=== PATIENT | male | born 1965 | race African-American/Black ===

== ENCOUNTER 2016-06-28 11:57 | Observation (INO) | payer SELFPAY ==
[2016-06-28] MEDS ORDERED: ASPIRIN CHEW 81 MG TABLET PO STA (12:16)
[2016-06-28] MEDS ORDERED: ASPIRIN CHEW 81 MG TABLET ONE (12:39)
[2016-06-28] MEDS ORDERED: SODIUM CHLORIDE FLUSH 0.9% 10 ML SYRINGE IVP PRN (15:32)
[2016-06-28] MEDS ORDERED: ALPRAZolam 0.25 MG TABLET PO SCH (20:14)
[2016-06-28] MEDS ORDERED: DEXTROSE 5% 1,000 ML IV PRN (20:19)
[2016-06-28] MEDS ORDERED: DEXTROSE GEL 37.5 GM TUBE PO PRN (20:19)
[2016-06-28] MEDS ORDERED: GLUCAGON 1 MG/ML VIAL SUBQ PRN (20:19)
[2016-06-28] MEDS ORDERED: DEXTROSE 50% ABBOJECT 25 GM/50 ML SYRINGE IVP PRN (20:19)
[2016-06-28] MEDS: INSULIN ASPART 300 UNIT/3 ML PEN SUBQ SCH (20:57)
[2016-06-28] MEDS: SODIUM CHLORIDE FLUSH 0.9% 10 ML SYRINGE IVP SCH (20:57)
[2016-06-28] MEDS ORDERED: IBUPROFEN 400 MG TABLET PO PRN (21:20)
[2016-06-29] MEDS: SODIUM CHLORIDE FLUSH 0.9% 10 ML SYRINGE IVP SCH (07:45)
[2016-06-29] MEDS ORDERED: metFORMIN 500 MG TABLET PO SCH (08:00)
[2016-06-29] MEDS: INSULIN ASPART 300 UNIT/3 ML PEN SUBQ SCH (08:01)
[2016-06-29] MEDS ORDERED: LISINOPRIL 5 MG TABLET PO SCH (09:00)
[2016-06-29] MEDS ORDERED: FAMOTIDINE 20 MG TABLET PO SCH (09:00)
[2016-06-29] MEDS ORDERED: amLODIPine 5 MG TABLET PO SCH (09:00)
[2016-06-29] MEDS ORDERED: POLYETHYLENE GLYCOL 3350 17 GM PACKET PO SCH (09:00)
== END 2016-06-29 10:48 | disposition home or self-care (01) ==
DX: R07.89 Other chest pain (principal); E11.9 Type 2 diabetes mellitus without complications; I10 Essential (primary) hypertension; F43.21 Adjustment disorder with depressed mood; K21.9 Gastro-esophageal reflux disease without esophagitis; Z79.84 Long term (current) use of oral hypoglycemic drugs; Z87.891 Personal history of nicotine dependence; Z63.5 Disruption of family by separation and divorce; Z88.0 Allergy status to penicillin
CPT/HCPCS: 36415; 71020; 80053; 82550; 83036; 83605; 83690; 83880; 84484; 85025; 93005; 93010; 99284; 99285; A9270; G0378

== ENCOUNTER 2016-08-02 07:10 | Emergency (ER) | payer SELFPAY ==
[2016-08-02] MEDS ORDERED: BENZONATATE 100 MG CAPSULE PO STA (07:33)
[2016-08-02] MEDS ORDERED: ALBUTEROL NEB 2.5 MG/3 ML INH STA (07:33)
[2016-08-02] MEDS ORDERED: BENZONATATE 100 MG CAPSULE PO ONE (07:37)
[2016-08-02] MEDS ORDERED: ALBUTEROL NEB 2.5 MG/3 ML INH ONE (07:44)
== END 2016-08-02 08:42 | disposition home or self-care (01) ==
DX: J11.1 Influenza due to unidentified influenza virus with other respiratory manifestations (principal); E11.9 Type 2 diabetes mellitus without complications; J44.9 Chronic obstructive pulmonary disease, unspecified; I10 Essential (primary) hypertension; Z79.84 Long term (current) use of oral hypoglycemic drugs; F17.200 Nicotine dependence, unspecified, uncomplicated
CPT/HCPCS: 71020; 94640; 99283; A9270; J7613

== ENCOUNTER 2016-08-22 07:46 | Emergency (ER) | payer SELFPAY ==
[2016-08-22] MEDS ORDERED: DEXAMETHASONE 10 MG/ML VIAL PO STA (09:05)
[2016-08-22] MEDS ORDERED: DEXAMETHASONE 10 MG/ML VIAL ONE (09:09)
== END 2016-08-22 09:18 | disposition home or self-care (01) ==
DX: J44.9 Chronic obstructive pulmonary disease, unspecified (principal); R07.89 Other chest pain; H66.003 Acute suppurative otitis media without spontaneous rupture of ear drum, bilateral; F17.200 Nicotine dependence, unspecified, uncomplicated; I10 Essential (primary) hypertension; E11.9 Type 2 diabetes mellitus without complications; Z79.84 Long term (current) use of oral hypoglycemic drugs

== ENCOUNTER 2016-09-19 14:30 | Emergency (ER) | payer SELFPAY ==
[2016-09-19 14:37] VITALS: BP 131/77
== END 2016-09-19 16:49 | disposition left against medical advice (07) ==
LOC: ED 14:30
DX: R42 Dizziness and giddiness (principal); Z53.21 Procedure and treatment not carried out due to patient leaving prior to being seen by health care provider

== ENCOUNTER 2016-10-12 10:19 | Emergency (ER) | payer SELFPAY ==
[2016-10-12] MEDS ORDERED: amLODIPine 5 MG TABLET PO STA (10:47)
[2016-10-12] MEDS ORDERED: DEXAMETHASONE 10 MG/ML VIAL PO STA (10:48)
[2016-10-12] MEDS ORDERED: DEXAMETHASONE 10 MG/ML VIAL ONE (11:04)
[2016-10-12] MEDS ORDERED: amLODIPine 5 MG TABLET ONE (11:04)
== END 2016-10-12 11:12 | disposition home or self-care (01) ==
DX: J44.9 Chronic obstructive pulmonary disease, unspecified (principal); H66.001 Acute suppurative otitis media without spontaneous rupture of ear drum, right ear; F17.200 Nicotine dependence, unspecified, uncomplicated; E11.9 Type 2 diabetes mellitus without complications; I10 Essential (primary) hypertension; Z79.84 Long term (current) use of oral hypoglycemic drugs
CPT/HCPCS: 99283; A9270

== ENCOUNTER 2016-10-12 15:08 | Emergency (ER) | payer SELFPAY ==
[2016-10-12] MEDS ORDERED: SODIUM CHLORIDE 0.9% 1,000 ML IV ONE (15:26)
== END 2016-10-12 18:04 | disposition home or self-care (01) ==
DX: E86.0 Dehydration (principal); R07.9 Chest pain, unspecified; J44.9 Chronic obstructive pulmonary disease, unspecified; I10 Essential (primary) hypertension; E11.9 Type 2 diabetes mellitus without complications; F17.200 Nicotine dependence, unspecified, uncomplicated; Z79.899 Other long term (current) drug therapy

== ENCOUNTER 2016-10-31 17:57 | Emergency (ER) | payer SELFPAY ==
[2016-10-31 18:35] LABS: BILIRUBIN,URINE NEGATIVE (NEGATIVE); UA w/ MICROSCOPIC CHARGE YES
[2016-10-31 18:41] LABS: WBC,URINE 0-3 /HPF (0-3)
[2016-10-31 18:42] LABS: UR CULTURE IF IND NOT INDICATED
[2016-10-31] MEDS ORDERED: HYDROmorphone 1 MG/ML SYRINGE IVP STA (20:02)
[2016-10-31] MEDS ORDERED: KETOROLAC 60 MG/2 ML VIAL IVP STA (20:02)
[2016-10-31] MEDS ORDERED: SODIUM CHLORIDE 0.9% 1,000 ML IV ONE (20:02)
[2016-10-31] MEDS ORDERED: KETOROLAC 30 MG/ML VIAL ONE (20:04)
[2016-10-31] MEDS ORDERED: HYDROmorphone 1 MG/ML SYRINGE ONE (20:04)
--- NOTE | 2016-10-31 20:07 | ED Physician Documentation ---
PD HPI ABD PAIN - Stated complaint Stated Complaint: R SIDE PX/BLOOD IN URINE - Chief complaint Chief Complaint: UTI - History obtained from History obtained from: Patient - History of Present Illness Timing - onset: Yesterday (Starting yesterday he developed gross hematuria, today developed some right flank and right-sided mid abdominal pain that is fairly constant. No history of renal colic. No fevers or changes in bowel movements or nausea.) Review of Systems Constitutional: denies: Fever, Chills Cardiac: denies: Chest pain / pressure, Palpitations Respiratory: denies: Dyspnea, Cough GI: denies: Abdominal Pain PD PAST MEDICAL HISTORY - Past Medical History Cardiovascular: Hypertension Respiratory: Asthma, COPD Endocrine/Autoimmune: Type 2 diabetes - Past Surgical History Past Surgical History: Yes General: Other - Present Medications Home Medications: Ambulatory Orders Medication Instructions Recorded Confirmed Amlodipine Besylate 10 mg PO DAILY #30 tablet 06/29/16 10/12/16 Famotidine [Pepcid] 20 mg PO DAILY #30 tablet 06/29/16 10/12/16 metFORMIN [Glucophage] 500 mg PO BID #60 tablet 06/29/16 10/12/16 Benzonatate [Tessalon] 100 mg PO TID PRN #20 capsule 08/02/16 10/12/16 Lisinopril 10 mg PO DAILY #30 tablet 08/02/16 10/12/16 Albuterol Sulf [Ventolin Hfa 1 - 2 puffs INH Q4HR PRN #1 inhaler 08/22/16 Inhaler] Albuterol Sulf [Ventolin Hfa 1 - 2 puffs INH Q4HR PRN #1 inhaler 10/12/16 Inhaler] Azithromycin [Zithromax] 250 mg PO DAILY #6 tablet 10/12/16 10/12/16 Oxycodone HCl/Acetaminophen 1 - 2 tab PO Q4H PRN #10 tablet 10/31/16 [Percocet 5-325 mg Tablet] Tamsulosin [Flomax] 0.4 mg PO DAILY #14 capsule 10/31/16 - Allergies Allergies/Adverse Reactions: Allergies Allergy/AdvReac Type Severity Reaction Status Date / Time Penicillins Allergy Unknown Verified 10/31/16 18:03 - Social History Does the pt smoke?: Yes Smoking Status: Current every day smoker Does the pt drink ETOH?: Yes Does the pt have substance abuse?: No - Immunizations Immunizations are current?: No Immunizations: TDAP >10years/unknown - POLST Patient has POLST: No PD ED PE NORMAL - Vitals Vital signs reviewed: Yes - General General: Alert and oriented X 3, No acute distress - Cardiac Cardiac: RRR, No murmur - Respiratory Respiratory: No respiratory distress, Clear bilaterally - Abdomen Abdomen: Soft, Non tender - Back Back: No CVA TTP, No spinal TTP - Derm Derm: Normal color, Warm and dry - Extremities Extremities: No edema, No calf tenderness / cord - Neuro Neuro: Alert and oriented X 3, Normal speech - Psych Psych: Normal mood, Normal affect Results - Vitals Vitals: Vital Signs - 24 hr 10/31/16 10/31/16 10/31/16 18:01 20:43 20:53 Temperature 35.6 C L Heart Rate 67 79 61 Respiratory 14 18 18 Rate Blood Pressure 133/85 H 134/80 H O2 Saturation 100 99 96 Oxygen O2 Source Room air - Labs Labs: Laboratory Tests 10/31/16 10/31/16 10/31/16 18:06 20:10 20:10 WBC 7.1 RBC 4.49 L Hgb 12.8 L Hct 39.7 L MCV 88.5 MCH 28.5 MCHC 32.2 RDW 14.5 Plt Count 96 L MPV 9.9 Neut # 3.0 Lymph # 3.1 [place] # 0.7 Eos # 0.2 Baso # 0.0 Absolute Nucleated RBC 0.00 Nucleated RBCs 0.0 Sodium 139 Potassium 3.8 Chloride 103 Carbon Dioxide 29 Anion Gap 7.0 BUN 19 Creatinine 0.9 Estimated GFR (MDRD) 109 Glucose 86 Calcium 9.0 Total Bilirubin 0.7 AST 30 ALT 37 Alkaline Phosphatase 79 Total Protein 7.4 Albumin 4.3 Globulin 3.1 Albumin/Globulin Ratio 1.4 Lipase 28 Urine Color YELLOW Urine Clarity CLOUDY Urine pH 6.0 Ur Specific [place] 1.025 Urine Protein 30 H Urine Glucose (UA) NEGATIVE Urine Ketones TRACE Urine Occult Blood LARGE H Urine Nitrite NEGATIVE Urine Bilirubin NEGATIVE Urine Urobilinogen 0.2 (NORMAL) Ur Leukocyte Esterase NEGATIVE Urine RBC TNTC H Urine WBC 0-3 Ur Squamous Epith Cells RARE Squamous Urine Bacteria Rare Ur Microscopic Review INDICATED Urine Culture Comments NOT INDICATED - Rads (name of study) CT KUB Radiology: EMP read contemporaneously (normal) PD MEDICAL DECISION MAKING - ED course ED course: 51-year-old gentleman presents with hematuria and symptoms most consistent with right-sided renal colic. He said he had similar symptoms a year ago, and had a cystoscopy which was negative. He was told it was his prostate causing symptoms. However the lack of pyuria and flank pain suggest potentially other symptoms. A review of his CT shows possibly a tiny distal right ureteral stone but it could be a phlebolith wasn't remarked on on the formal read. Advised follow up with urology. Departure - Departure Disposition: Home, Self Care Clinical Impression: Flank pain, Hematuria Condition: Good Record reviewed to determine appropriate education?: Yes Instructions: ED Abdominal Pain Unkn Cause Prescriptions: Tamsulosin [Flomax] 0.4 mg PO DAILY #14 capsule Oxycodone HCl/Acetaminophen [Percocet 5-325 mg Tablet] 1 - 2 tab PO Q4H PRN #10 tablet PRN Reason: Pain Comments: Given the normal CAT scan and hematuria it is reasonable to followup with the urology for repeat evaluation, the closest is in [place], call [phone] to schedule an appointment. Your blood pressure was elevated today on check in to the emergency department. This does not mean that you have hypertension, it is a common phenomenon to check into the emergency department and have elevated blood pressure. I recommend that you see your primary care physician within the week to have it rechecked when you're feeling better. Do not drink or drive while on narcotic pain medicine. Note that many narcotic pain relievers also contain tylenol/acetaminophen. Please ensure that your total dose of acetaminophen from all sources does not exceed 3 grams (3000mg) per day. You may constipated on this medication, take a stool softener such as "Colace" twice a day while you are on it. Also recommend a [id number]-ign-sselprk laxative such as senna or MiraLAX any day that you do not have a bowel movement. If you received narcotic pain medication in the emergency department, do not drive or operate machinery for the next 24 hours.
[2016-10-31 20:21] LABS: BASOPHILS % (AUTO) 0.6 %; EOSINOPHILS # (AUTO) 0.2 10^3/uL (0.0-0.7); EOSINOPHILS % (AUTO) 3.5 %; HCT - HEMATOCRIT 39.7 % (42.0-52.0); HGB - HEMOGLOBIN 12.8 g/dL (14.0-18.0); LYMPHOCYTES # (AUTO) 3.1 10^3/uL (1.5-3.5); LYMPHOCYTES % (AUTO) 44.1 %; MEAN CORPUSCULAR HEMOGLOBIN 28.5 pg (27.0-31.0); MEAN CORPUSCULAR HGB CONC 32.2 g/dL (32.0-36.0); MEAN CORPUSCULAR VOLUME 88.5 fL (80.0-94.0); MEAN PLATELET VOLUME 9.9 fL (7.4-11.4); MONOCYTES # (AUTO) 0.7 10^3/uL (0.0-1.0); MONOCYTES % (AUTO) 9.8 %; RED BLOOD COUNT 4.49 10^6/uL (4.70-6.10); RED CELL DISTRIBUTION WIDTH 14.5 % (12.0-15.0); UNCORRECTED WHITE BLOOD COUNT 7.1 x10^3/uL; WHITE BLOOD COUNT 7.1 x10^3/uL (4.8-10.8)
[2016-10-31 20:34] LABS: ALBUMIN/GLOBULIN RATIO 1.4 (1.0-2.2); BILIRUBIN,TOTAL 0.7 mg/dL (0.2-1.0); CREATININE 0.9 mg/dL (0.6-1.2); POTASSIUM 3.8 mmol/L (3.5-5.0); TOTAL PROTEIN 7.4 g/dL (6.7-8.2)
--- NOTE | 2016-10-31 20:59 | CT Preliminary Report ---
Exam: CT Abdomen/Pelvis W/O IMPRESSION: No urinary tract stones or obstruction. [facility] SITE ID: [id number]
--- NOTE | 2016-10-31 21:01 | CT Report ---
EXAM: CT ABDOMEN AND PELVIS (CT KUB) EXAM DATE: 10/31/2016 08:39 PM. CLINICAL HISTORY: R flank pain, hematuria. COMPARISONS: None. TECHNIQUE: Routine axial helical CT imaging was performed through the abdomen and pelvis without IV c ontrast. Reconstructions: Coronal and sagittal. In accordance with CT protocol optimization, one or more of the following dose reduction techniques w ere utilized for this exam: automated exposure control, adjustment of mA and/or KV based on patient s ize, or use of iterative reconstructive technique. FINDINGS: Lung Bases: Unremarkable. Right Kidney/Ureter: No stones, hydronephrosis, or hydroureter. No perinephric fat stranding. Left Kidney/Ureter: No stones, hydronephrosis, or hydroureter. No perinephric fat stranding. Other Solid Organs: The liver has a nodular contour with hypertrophy of the lateral segment of the le ft lobe and caudate lobe and atrophy of the right lobe. The spleen is enlarged measuring up to 13.4 c m in length. The pancreas, adrenal glands and gallbladder are unremarkable. Gallbladder/Bile Ducts: Unremarkable. Peritoneal Cavity: No free fluid, free air or meenu adenopathy. Bowel is grossly unremarkable. Pelvic Organs: No bladder stones or wall thickening. Noncontrast images of the visualized pelvic orga ns are unremarkable. Vasculature: Unremarkable. Other: None. IMPRESSION: No urinary tract stones or obstruction. [facility] Referring Provider Line: [phone] SITE ID: [id number]
[2016-10-31] MEDS ORDERED: oxyCODONE/ACET 5/325 Prepack 4 PO STA (21:27)
[2016-10-31] MEDS ORDERED: oxyCODONE/ACET 5/325 Prepack 4 PO ONE (21:30)
[2016-10-31 21:39] VITALS: BP 137/80
== END 2016-10-31 21:38 | disposition home or self-care (01) ==
LOC: ED 17:57
DX: R31.9 Hematuria, unspecified (principal); R10.30 Lower abdominal pain, unspecified; I10 Essential (primary) hypertension; J44.9 Chronic obstructive pulmonary disease, unspecified; J45.909 Unspecified asthma, uncomplicated; E11.9 Type 2 diabetes mellitus without complications; Z79.84 Long term (current) use of oral hypoglycemic drugs; F17.200 Nicotine dependence, unspecified, uncomplicated
CPT/HCPCS: 36415; 74176; 80053; 81001; 83690; 85025; 96374; 96375; 99284; J1170; 81003; 87086

== ENCOUNTER 2017-02-11 10:57 | Emergency (ER) | payer MEDICAID ==
--- NOTE | 2017-02-11 11:38 | ED Physician Documentation ---
PD HPI URI - Stated complaint Stated Complaint: FLU SYMPTOMS - Chief complaint Chief Complaint: General - History obtained from History obtained from: Patient, Friend - History of Present Illness Timing - onset: How many days ago (5) Timing duration: Days (5) Timing details: Gradual onset, Still present Associated symptoms: Fever, Chills, Sweats, Ear pain, Nasal congestion, Rhinorrhea, Sore throat, Productive cough Contributing factors: Sick contact Improves by: Rest, Medication Worsened by: Activity Similar symptoms before: Diagnosis (OM, flu, pneumonia) Recently seen: Not recently seen - Additional information Additional information: 51-year-old male with a history of type 2 diabetes and reactive airway disease has developed upper respiratory symptoms over the past 5 days including fever chills sweats cough sputum production right ear pain and malaise. Review of Systems Constitutional: reports: Fever, Chills, Myalgias, Fatigue Eyes: denies: Decreased vision Ears: reports: Ear pain Nose: reports: Rhinorrhea / runny nose, Congestion Throat: reports: Sore throat Cardiac: denies: Chest pain / pressure, Palpitations Respiratory: reports: Cough. denies: Dyspnea GI: denies: Abdominal Pain, Nausea, Vomiting : denies: Dysuria, Frequency Skin: denies: Rash Musculoskeletal: denies: Neck pain, Back pain Neurologic: denies: Generalized weakness, Focal weakness, Numbness PD PAST MEDICAL HISTORY - Past Medical History Cardiovascular: Hypertension Respiratory: Asthma, COPD Endocrine/Autoimmune: Type 2 diabetes - Past Surgical History Past Surgical History: Yes General: Other - Present Medications Home Medications: Ambulatory Orders Medication Instructions Recorded Confirmed Amlodipine Besylate 10 mg PO DAILY #30 tablet 06/29/16 10/12/16 Famotidine [Pepcid] 20 mg PO DAILY #30 tablet 06/29/16 10/12/16 metFORMIN [Glucophage] 500 mg PO BID #60 tablet 06/29/16 10/12/16 Lisinopril 10 mg PO DAILY #30 tablet 08/02/16 10/12/16 Albuterol Sulf [Ventolin Hfa 1 - 2 puffs INH Q4HR PRN #1 inhaler 02/11/17 Inhaler] Azithromycin [Zithromax] 250 mg PO DAILY #6 tablet 02/11/17 - Allergies Allergies/Adverse Reactions: Allergies Allergy/AdvReac Type Severity Reaction Status Date / Time Penicillins Allergy Unknown Verified 02/11/17 11:07 - Social History Does the pt smoke?: Yes Smoking Status: Current every day smoker Does the pt drink ETOH?: Yes Does the pt have substance abuse?: No - Immunizations Immunizations are current?: No Immunizations: TDAP >10years/unknown - POLST Patient has POLST: No PD ED PE NORMAL - Vitals Vital signs reviewed: Yes (Febrile tachycardic and hypertensive) - General General: Alert and oriented X 3, Well developed/nourished - HEENT HEENT: Atraumatic, PERRL, EOMI, Other (The right TM is erythematous with rounding of the landmarks the left is with mild erythema and intact landmarks pharynx is with dry mucous membranes there is no maxillary point sinus tenderness) - Neck Neck: Supple, no meningeal sign, No bony TTP - Cardiac Cardiac: No murmur, Other (Tachycardia to 100) - Respiratory Respiratory: No respiratory distress, Other (There is rhonchi in the right base. ) - Abdomen Abdomen: Soft, Non tender - Back Back: No CVA TTP, No spinal TTP - Derm Derm: Normal color, Warm and dry, No rash - Extremities Extremities: No deformity, No edema - Neuro Neuro: Alert and oriented X 3, No motor deficit, No sensory deficit, Normal speech - Psych Psych: Normal mood, Normal affect Results - Vitals Vitals: Vital Signs - 24 hr 02/11/17 02/11/17 02/11/17 11:04 11:45 12:54 Temperature 38.3 C H 39.5 C H Heart Rate 110 H 92 95 Respiratory 16 16 Rate Blood Pressure 138/75 H 131/69 H O2 Saturation 98 98 02/11/17 02/11/17 13:21 13:49 Temperature 39.4 C H 38.8 C H Heart Rate Respiratory Rate Blood Pressure O2 Saturation Oxygen O2 Source Room air - Labs Labs: Laboratory Tests 02/11/17 02/11/17 02/11/17 11:31 11:32 11:32 WBC 14.1 H RBC 4.55 L Hgb 13.4 L Hct 39.2 L MCV 86.3 MCH 29.5 MCHC 34.2 RDW 14.8 Plt Count 73 L MPV 10.6 Neut # 11.0 H Lymph # 1.3 L [place] # 1.8 H Eos # 0.0 Baso # 0.0 Absolute Nucleated RBC 0.01 Nucleated RBCs 0.1 Sodium 130 L Potassium 3.2 L Chloride 96 L Carbon Dioxide 23 Anion Gap 11.0 BUN 20 Creatinine 1.3 H Estimated GFR (MDRD) 71 L Glucose 142 H POC Whole Bld Glucose 133 H Calcium 8.7 Total Bilirubin 1.9 H AST 64 H ALT 62 H Alkaline Phosphatase 84 Troponin I Total Protein 7.6 Albumin 4.0 Globulin 3.6 Albumin/Globulin Ratio 1.1 Lipase 43 02/11/17 02/11/17 11:32 12:57 WBC RBC Hgb Hct MCV MCH MCHC RDW Plt Count MPV Neut # Lymph # [place] # Eos # Baso # Absolute Nucleated RBC Nucleated RBCs Sodium Potassium Chloride Carbon Dioxide Anion Gap BUN Creatinine Estimated GFR (MDRD) Glucose POC Whole Bld Glucose 145 H Calcium Total Bilirubin AST ALT Alkaline Phosphatase Troponin I < 0.04 Total Protein Albumin Globulin Albumin/Globulin Ratio Lipase - Rads (name of study) 2 view chest Radiology: Prelim report reviewed (Impression: New right lower lobe infiltrate.) , EMP read indepedently, See rad report Procedures - IVC sono (time) 1145 Bedside IVC sono: IVC measures (cm) (0.98), IVC collapsed c insp (cm) (complete) , Dehydration PD MEDICAL DECISION MAKING - ED course Complexity details: reviewed old records, reviewed results, re-evaluated patient , considered differential, d/w patient ED course: 51-year-old type II diabetic with respiratory symptoms appears to have otitis on examination and rhonchi in the right base. On initial evaluation in the emergency department patient also appears dehydrated. He is febrile and tachycardic. He is administered IV saline IV dexamethasone IV Rocephin. His chest x-ray confirms pneumonia. He is not hypoxic or in respiratory failure Departure - Departure Disposition: 01 Home, Self Care Clinical Impression: Dehydration Otitis media Qualifiers: Otitis media type: suppurative Laterality: right Chronicity: acute Recurrence: recurrent Spontaneous tympanic membrane rupture: without spontaneous rupture Qualified Code(s): H66.004 - Acute suppurative otitis media without spontaneous rupture of ear drum, recurrent, right ear Pneumonia Qualifiers: Pneumonia type: due to unspecified organism Laterality: right Lung location: lower lobe of lung Qualified Code(s): J18.1 - Lobar pneumonia, unspecified organism Condition: Stable Instructions: ED Otitis Media Acute Adult, ED Pneumonia Adult Follow-Up: [facility] [Provider Group] [facility] [Provider Group] Prescriptions: Albuterol Sulf [Ventolin Hfa Inhaler] 1 - 2 puffs INH Q4HR PRN #1 inhaler PRN Reason: Shortness Of Air/Wheezing Azithromycin [Zithromax] 250 mg PO DAILY #6 tablet
[2017-02-11] MEDS ORDERED: cefTRIAXone 1 GM in SODIUM CHLORIDE 0.9% MINIBAG 100 ML IV STA (11:48)
[2017-02-11] MEDS ORDERED: SODIUM CHLORIDE 0.9% 1,000 ML IV ONE (11:48)
[2017-02-11] MEDS ORDERED: DEXAMETHASONE 10 MG/ML VIAL IVP STA (11:48)
[2017-02-11] MEDS ORDERED: ACETAMINOPHEN 500 MG TABLET PO STA (11:53)
[2017-02-11] MEDS ORDERED: cefTRIAXone 1 GM VIAL ONE (11:55)
[2017-02-11] MEDS ORDERED: DEXAMETHASONE 10 MG/ML VIAL ONE (11:56)
[2017-02-11 12:09] LABS: ALBUMIN/GLOBULIN RATIO 1.1 (1.0-2.2); BILIRUBIN,TOTAL 1.9 mg/dL (0.2-1.0); CALCIUM 8.7 mg/dL (8.5-10.3); CREATININE 1.3 mg/dL (0.6-1.2); POTASSIUM 3.2 mmol/L (3.5-5.0); TOTAL PROTEIN 7.6 g/dL (6.7-8.2)
[2017-02-11 12:14] LABS: BASOPHILS % (AUTO) 0.2 %; HCT - HEMATOCRIT 39.2 % (42.0-52.0); HGB - HEMOGLOBIN 13.4 g/dL (14.0-18.0); LYMPHOCYTES # (AUTO) 1.3 10^3/uL (1.5-3.5); LYMPHOCYTES % (AUTO) 9.3 %; MEAN CORPUSCULAR HEMOGLOBIN 29.5 pg (27.0-31.0); MEAN CORPUSCULAR HGB CONC 34.2 g/dL (32.0-36.0); MEAN CORPUSCULAR VOLUME 86.3 fL (80.0-94.0); MEAN PLATELET VOLUME 10.6 fL (7.4-11.4); MONOCYTES # (AUTO) 1.8 10^3/uL (0.0-1.0); MONOCYTES % (AUTO) 12.5 %; NUCLEATED RED BLOOD CELLS AUTO 0.1 /100WBC; RED BLOOD COUNT 4.55 10^6/uL (4.70-6.10); RED CELL DISTRIBUTION WIDTH 14.8 % (12.0-15.0); UNCORRECTED WHITE BLOOD COUNT 14.1 x10^3/uL; WHITE BLOOD COUNT 14.1 x10^3/uL (4.8-10.8)
[2017-02-11] MEDS ORDERED: ACETAMINOPHEN 500 MG TABLET PO ONE (12:16)
[2017-02-11] MEDS ORDERED: POTASSIUM BICARB 25 MEQ TABLET PO STA (12:34)
[2017-02-11] MEDS ORDERED: POTASSIUM BICARB 25 MEQ TABLET PO ONE (12:52)
--- NOTE | 2017-02-11 12:58 | XRAY Preliminary Report ---
Exam: XR Chest 2 View PA/LAT IMPRESSION: New right lower lobe infiltrate. [facility] SITE ID: [id number]
--- NOTE | 2017-02-11 13:01 | XRAY Report ---
EXAM: CHEST RADIOGRAPHY EXAM DATE: 02/11/2017 12:08 PM. CLINICAL HISTORY: Rhonchi in right base. COMPARISON: 10/12/2016. TECHNIQUE: 2 views. FINDINGS: Lungs/Pleura: There is a new right lower lobe infiltrate present. No effusion or pneumothorax is seen . Mediastinum: Heart and mediastinal contours are unremarkable. Other: None. IMPRESSION: New right lower lobe infiltrate. [facility] Referring Provider Line: [phone] SITE ID: [id number]
[2017-02-11 14:03] VITALS: BP 130/72
== END 2017-02-11 14:16 | disposition home or self-care (01) ==
LOC: ED 10:57
DX: E86.0 Dehydration (principal); J18.9 Pneumonia, unspecified organism; H66.004 Acute suppurative otitis media without spontaneous rupture of ear drum, recurrent, right ear; E11.9 Type 2 diabetes mellitus without complications; Z79.84 Long term (current) use of oral hypoglycemic drugs; I10 Essential (primary) hypertension; J45.909 Unspecified asthma, uncomplicated; J44.9 Chronic obstructive pulmonary disease, unspecified; F17.200 Nicotine dependence, unspecified, uncomplicated
CPT/HCPCS: 36415; 71020; 80053; 83690; 84484; 85025; 87040; 96365; 96375; 99284; A9270

== ENCOUNTER 2017-03-10 15:32 | Emergency (ER) | payer MEDICAID ==
[2017-03-10 15:46] VITALS: BP 141/88
== END 2017-03-10 20:01 | disposition left against medical advice (07) ==
LOC: ED 15:32
DX: R09.82 Postnasal drip (principal); J02.9 Acute pharyngitis, unspecified; Z53.21 Procedure and treatment not carried out due to patient leaving prior to being seen by health care provider
CPT/HCPCS: 99282

== ENCOUNTER 2017-03-11 11:33 | Emergency (ER) | payer MEDICAID ==
[2017-03-11 11:49] VITALS: BP 149/86
--- NOTE | 2017-03-11 12:27 | ED Physician Documentation ---
PD HPI URI - Stated complaint Stated Complaint: SORE THOAT/DRAINAGE - Chief complaint Chief Complaint: Heent - History obtained from History obtained from: Patient - History of Present Illness Timing - onset: Other (He had a right-sided pneumonia about a month ago and finished the antibiotics, was doing okay for a couple weeks but developed chest congestion again with postnasal drip and a sore throat. There is no associated fever or significant shortness of breath. He does have baseline COPD from smoking, no other heart or lung issues.) Review of Systems Constitutional: denies: Fever, Chills, Myalgias, Fatigue Ears: denies: Ear pain Nose: reports: Rhinorrhea / runny nose, Congestion. denies: Sinus pressure / pain Throat: reports: Sore throat Respiratory: reports: Cough. denies: Dyspnea GI: denies: Abdominal Pain PD PAST MEDICAL HISTORY - Past Medical History Past Medical History: Yes Cardiovascular: Hypertension Respiratory: Asthma, COPD Endocrine/Autoimmune: Type 2 diabetes - Past Surgical History Past Surgical History: Yes General: Other - Present Medications Home Medications: Ambulatory Orders Medication Instructions Recorded Confirmed Amlodipine Besylate 10 mg PO DAILY #30 tablet 06/29/16 03/11/17 Famotidine [Pepcid] 20 mg PO DAILY #30 tablet 06/29/16 03/11/17 metFORMIN [Glucophage] 500 mg PO BID #60 tablet 06/29/16 03/11/17 Lisinopril 10 mg PO DAILY #30 tablet 08/02/16 03/11/17 Albuterol Sulf [Ventolin Hfa 1 - 2 puffs INH Q4HR PRN #1 inhaler 02/11/17 Inhaler] Doxycycline Hyclate 100 mg PO BID #10 tablet 03/11/17 Guaifenesin/Pseudoephedrne HCl 1 each PO BID PRN #20 tab.er.12h 03/11/17 [Mucinex D ER 600-60 mg Tablet] Nicotine 14 mg Patch [Nicoderm] 1 each TOP Q24H #28 patch 03/11/17 - Allergies Allergies/Adverse Reactions: Allergies Allergy/AdvReac Type Severity Reaction Status Date / Time Penicillins Allergy Unknown Verified 02/11/17 11:07 - Social History Does the pt smoke?: Yes Smoking Status: Current every day smoker Does the pt drink ETOH?: Yes Does the pt have substance abuse?: No - Immunizations Immunizations are current?: No Immunizations: TDAP >10years/unknown - POLST Patient has POLST: No PD ED PE NORMAL - Vitals Vital signs reviewed: Yes - General General: Alert and oriented X 3, No acute distress - HEENT HEENT: PERRL, EOMI, Ears normal, Moist mucous membranes, Pharynx benign ( Tonsils large but not inflamed appearing) - Neck Neck: Supple, no meningeal sign, No bony TTP - Cardiac Cardiac: RRR, No murmur - Respiratory Respiratory: No respiratory distress, Other (Crackles and diminished breath sounds at the right base) - Abdomen Abdomen: Soft, Non tender - Extremities Extremities: No edema, No calf tenderness / cord - Neuro Neuro: Alert and oriented X 3, Normal speech - Psych Psych: Normal mood, Normal affect Results - Vitals Vitals: Vital Signs - 24 hr 03/11/17 11:41 Temperature 36.8 C Heart Rate 92 Respiratory 15 Rate Blood Pressure 149/86 H O2 Saturation 96 Oxygen O2 Source Room air - Labs Labs: Laboratory Tests 03/11/17 11:59 Group A Strep Rapid Negative - Rads (name of study) 2v chest Radiology: EMP read contemporaneously (Improving but persistent right lower lobe infiltrate, needs repeat x-ray, patient so advised.) PD MEDICAL DECISION MAKING - ED course ED course: 51-year-old gentleman with chest congestion, underlying COPD. Has clearly abnormal breath sounds in the right lower lobe and a persistent infiltrate there on chest x-ray, he is placed on a course of doxycycline and counseled at length quit smoking. He did request a prescription for nicotine patches which was supplied. Departure - Departure Disposition: 01 Home, Self Care Clinical Impression: Mild chronic obstructive pulmonary disease Pneumonia Qualifiers: Pneumonia type: due to unspecified organism Laterality: right Lung location: lower lobe of lung Qualified Code(s): J18.1 - Lobar pneumonia, unspecified organism Condition: Good Record reviewed to determine appropriate education?: Yes Instructions: Pneumonia Dc Prescriptions: Doxycycline Hyclate 100 mg PO BID #10 tablet Guaifenesin/Pseudoephedrne HCl [Mucinex D ER 600-60 mg Tablet] 1 each PO BID PRN #20 tab.er.12h PRN Reason: congestion Nicotine 14 mg Patch [Nicoderm] 1 each TOP Q24H #28 patch Comments: Call your doctor to arrange a follow-up appointment, make the next available appointment. In the interim, return anytime if worse or if new symptoms develop. Your blood pressure was elevated today on check into the emergency department. This does not mean that you have hypertension, it is a common phenomenon to come to the emergency department and have elevated blood pressure. I recommend that she see your primary care physician within the week to have it rechecked when you are feeling better. Forms: Activity restrictions Discharge Date/Time: 03/11/17 13:22
[2017-03-11 12:36] LABS: RAPID STREP SCREEN REAGENT QC YELLOW (YELLOW)
--- NOTE | 2017-03-11 13:35 | XRAY Preliminary Report ---
Exam: XR Chest 2 View PA/LAT IMPRESSION: Resolving infiltrate in the posterior right lower lobe. Recommend follow-up imaging in 6- 8 weeks to ensure complete resolution. [facility] SITE ID: [id number]
--- NOTE | 2017-03-11 13:38 | XRAY Report ---
EXAM: CHEST RADIOGRAPHY EXAM DATE: 03/11/2017 01:04 PM. CLINICAL HISTORY: Congestion. Abnormal right-sided breath sounds. Diagnosed with pneumonia 4 weeks ag o. COMPARISON: 02/11/2017, 10/12/2016, 08/22/2016. TECHNIQUE: 2 views. FINDINGS: Lungs/Pleura: Normal volumes. Partial resolution of previously demonstrated posterior right lower lob e infiltrate, with residual streaky airspace opacity. No new focal opacity. No pleural effusion or pn eumothorax. Mediastinum: Normal cardiomediastinal contour. Other: The bones are unremarkable. IMPRESSION: Resolving infiltrate in the posterior right lower lobe. Recommend follow-up imaging in 6- 8 weeks to ensure complete resolution. [facility] Referring Provider Line: [phone] SITE ID: [id number]
== END 2017-03-11 13:22 | disposition home or self-care (01) ==
LOC: ED 11:33
DX: J44.9 Chronic obstructive pulmonary disease, unspecified (principal); J18.9 Pneumonia, unspecified organism; I10 Essential (primary) hypertension; J45.909 Unspecified asthma, uncomplicated; Z79.84 Long term (current) use of oral hypoglycemic drugs; F17.200 Nicotine dependence, unspecified, uncomplicated
CPT/HCPCS: 71020; 87070; 87430; 99283

== ENCOUNTER 2017-04-06 15:47 | Outpatient (CLI) | payer MEDICAID ==
[2017-04-06 12:49] LABS: BASOPHILS % (AUTO) 0.3 %; EOSINOPHILS # (AUTO) 0.3 10^3/uL (0.0-0.7); EOSINOPHILS % (AUTO) 4.2 %; HCT - HEMATOCRIT 39.7 % (42.0-52.0); HGB - HEMOGLOBIN 13.4 g/dL (14.0-18.0); LYMPHOCYTES # (AUTO) 3.2 10^3/uL (1.5-3.5); LYMPHOCYTES % (AUTO) 48.4 %; MEAN CORPUSCULAR HEMOGLOBIN 29.6 pg (27.0-31.0); MEAN CORPUSCULAR HGB CONC 33.7 g/dL (32.0-36.0); MEAN CORPUSCULAR VOLUME 87.7 fL (80.0-94.0); MEAN PLATELET VOLUME 10.2 fL (7.4-11.4); MONOCYTES # (AUTO) 0.6 10^3/uL (0.0-1.0); MONOCYTES % (AUTO) 9.2 %; NEUTROPHILS # (AUTO) 2.5 10^3/uL (1.5-6.6); NEUTROPHILS % (AUTO) 37.9 %; NUCLEATED RED BLOOD CELLS AUTO 0.1 /100WBC; RED BLOOD COUNT 4.53 10^6/uL (4.70-6.10); RED CELL DISTRIBUTION WIDTH 15.7 % (12.0-15.0); UNCORRECTED WHITE BLOOD COUNT 6.7 x10^3/uL; WHITE BLOOD COUNT 6.7 x10^3/uL (4.8-10.8)
[2017-04-06 13:26] LABS: ALBUMIN/GLOBULIN RATIO 1.2 (1.0-2.2); BILIRUBIN,TOTAL 0.6 mg/dL (0.2-1.0); BUN - BLOOD UREA NITROGEN 16 mg/dL (6-20); CALCIUM 8.7 mg/dL (8.5-10.3); CARBON DIOXIDE - CO2 24 mmol/L (21-32); CHLORIDE 105 mmol/L (101-111); CHOL/HDL RATIO 2.9 (<5.0); CHOLESTEROL 170 mg/dL; CREATININE 0.8 mg/dL (0.6-1.2); GFR - MDRD 125 (>89); GLUCOSE 101 mg/dL (70-100); HDL CHOLESTEROL 59 mg/dL; LDL/HDL RATIO 1.7 (<3.6); POTASSIUM 4.1 mmol/L (3.5-5.0); SODIUM 136 mmol/L (135-145); TOTAL PROTEIN 7.1 g/dL (6.7-8.2); TRIGLYCERIDES 62 mg/dL; VLDL CHOLESTEROL 12 mg/dL
[2017-04-06 13:30] LABS: HEMOGLOBIN A1C 0.53 g/dL
== END 2017-04-06 15:48 | disposition home or self-care (01) ==
LOC: LAB.N 15:47
PROVIDERS: ATTEND Family Medicine
DX: F17.210 Nicotine dependence, cigarettes, uncomplicated (principal); J18.9 Pneumonia, unspecified organism; E11.9 Type 2 diabetes mellitus without complications
CPT/HCPCS: 36415; 80053; 80061; 83036; 85025

== ENCOUNTER 2017-05-23 14:44 | Outpatient (CLI) | payer MEDICAID ==
[2017-05-23 19:12] LABS: BASOPHILS % (AUTO) 0.3 %; EOSINOPHILS # (AUTO) 0.1 10^3/uL (0.0-0.7); EOSINOPHILS % (AUTO) 1.2 %; HCT - HEMATOCRIT 39.6 % (42.0-52.0); HGB - HEMOGLOBIN 13.2 g/dL (14.0-18.0); IMMATURE RETIC FRACTION 0.37; LYMPHOCYTES # (AUTO) 2.6 10^3/uL (1.5-3.5); LYMPHOCYTES % (AUTO) 43.6 %; MEAN CORPUSCULAR HEMOGLOBIN 29.4 pg (27.0-31.0); MEAN CORPUSCULAR HGB CONC 33.4 g/dL (32.0-36.0); MEAN CORPUSCULAR VOLUME 88.2 fL (80.0-94.0); MEAN PLATELET VOLUME 10.5 fL (7.4-11.4); MONOCYTES # (AUTO) 0.6 10^3/uL (0.0-1.0); MONOCYTES % (AUTO) 9.3 %; NEUTROPHILS # (AUTO) 2.8 10^3/uL (1.5-6.6); NEUTROPHILS % (AUTO) 45.6 %; RED CELL DISTRIBUTION WIDTH 14.4 % (12.0-15.0); UNCORRECTED WHITE BLOOD COUNT 6.1 x10^3/uL; WHITE BLOOD COUNT 6.1 x10^3/uL (4.8-10.8)
[2017-05-23 19:15] LABS: BILIRUBIN,DIRECT 0.1 mg/dL (0.1-0.5); BILIRUBIN,TOTAL 0.6 mg/dL (0.2-1.0); TOTAL PROTEIN 7.3 g/dL (6.7-8.2)
[2017-05-23 19:23] LABS: FERRITIN 35.2 ng/mL (23.9-336.2)
== END 2017-05-23 14:45 | disposition home or self-care (01) ==
LOC: LAB.N 14:44
PROVIDERS: ATTEND Family Medicine
DX: R74.0 Nonspecific elevation of levels of transaminase and lactic acid dehydrogenase [LDH] (principal); D64.9 Anemia, unspecified
CPT/HCPCS: 36415; 80076; 82607; 82728; 82746; 83540; 84466; 85025; 85044; 86317; 86704; 86709; 86803; 87340

== ENCOUNTER 2017-06-12 09:01 | Emergency (ER) | payer MEDICAID ==
[2017-06-12 09:10] VITALS: BP 147/96
[2017-06-12] MEDS ORDERED: cefTRIAXone 250 MG VIAL IM STA (09:23)
[2017-06-12] MEDS ORDERED: AZITHROMYCIN 250 MG TABLET PO STA (09:23)
--- NOTE | 2017-06-12 09:29 | ED Physician Documentation ---
PD HPI MALE - Stated complaint Stated Complaint: ABD PX - Chief complaint Chief Complaint: UTI - History obtained from History obtained from: Patient - History of Present Illness Timing - onset: Yesterday Timing - details: Gradual onset Associated symptoms: Discharge. No: Dysuria PD HPI MALE CONTRIB FACTORS: Exposed to STD Similar symptoms before: Work up / diagnostics, Treatment Recently seen: Not recently seen - Additional information Additional information: Patient is a 52 year old male presenting to the emergency department for exposure to an sti. Patient states that he has some discharge yesterday and he has had them before. Patient states that he thinks he knows were he got if from. Patient denied any other complaints at this time. Review of Systems Constitutional: denies: Fever, Chills Eyes: reports: Reviewed and negative Ears: reports: Reviewed and negative Nose: reports: Reviewed and negative Throat: reports: Reviewed and negative Cardiac: reports: Reviewed and negative Respiratory: reports: Reviewed and negative GI: denies: Abdominal Pain, Nausea, Vomiting : reports: Discharge. denies: Dysuria Skin: denies: Rash Musculoskeletal: denies: Neck pain, Back pain, Extremity pain Neurologic: reports: Reviewed and negative Psychiatric: reports: Reviewed and negative Immunocompromised: denies: Immunocompromised PD PAST MEDICAL HISTORY - Past Medical History Past Medical History: Yes Cardiovascular: Hypertension Respiratory: Asthma, COPD Endocrine/Autoimmune: Type 2 diabetes - Past Surgical History Past Surgical History: Yes General: Other - Present Medications Home Medications: Ambulatory Orders Medication Instructions Recorded Confirmed Amlodipine Besylate 10 mg PO DAILY #30 tablet 06/29/16 06/12/17 Albuterol Sulf [Ventolin Hfa 1 - 2 puffs INH Q4HR PRN #1 inhaler 02/11/17 Inhaler] - Allergies Allergies/Adverse Reactions: Allergies Allergy/AdvReac Type Severity Reaction Status Date / Time Penicillins Allergy Unknown Verified 02/11/17 11:07 - Social History Does the pt smoke?: Yes Smoking Status: Current every day smoker Does the pt drink ETOH?: Yes Does the pt have substance abuse?: No - Immunizations Immunizations are current?: No Immunizations: TDAP >10years/unknown - POLST Patient has POLST: No PD ED PE NORMAL - General General: Alert and oriented X 3, No acute distress - HEENT HEENT: Atraumatic, PERRL - Neck Neck: Supple, no meningeal sign - Cardiac Cardiac: RRR, No murmur - Respiratory Respiratory: No respiratory distress - Male Male : Pt declined - Derm Derm: Normal color - Extremities Extremities: No tenderness to palpate, Normal ROM s pain, No edema - Neuro Neuro: Alert and oriented X 3, No motor deficit, No sensory deficit, Normal speech - Psych Psych: Normal mood Results - Vitals Vitals: Vital Signs - 24 hr 06/12/17 09:07 Temperature 37 C Heart Rate 80 Respiratory 16 Rate Blood Pressure 147/96 H O2 Saturation 99 Oxygen O2 Source Room air PD MEDICAL DECISION MAKING - ED course Complexity details: reviewed old records, re-evaluated patient, considered differential, d/w patient ED course: Patient was seen and examined at bedside. Patient's urine was collected. Patient was treated with azithromycin and ceftriaxone. Patient required no further work up and was stable for discharge with outpatient follow up. Departure - Departure Disposition: 01 Home, Self Care Clinical Impression: STI (sexually transmitted infection) Condition: Good Instructions: ED STD Male Treated Follow-Up: Larry Hines MD [Primary Care Provider] - Comments: Today you have been treated for gonorrhea and chlamydia. It is a one time dose. You will need to call any previous partner(s) and let them know you have been treated. YOu should refrain from sexual intercourse for the next two weeks. your culture results will be back in the next three days. You may return to the emergency department at any time for new, worsening or uncontrollable symptoms.
[2017-06-12] MEDS ORDERED: LIDOCAINE 1% 2 ML VIAL ONE (09:36)
== END 2017-06-12 09:48 | disposition home or self-care (01) ==
LOC: ED 09:01
DX: Z20.2 Contact with and (suspected) exposure to infections with a predominantly sexual mode of transmission (principal); I10 Essential (primary) hypertension; J44.9 Chronic obstructive pulmonary disease, unspecified; E11.9 Type 2 diabetes mellitus without complications; F17.200 Nicotine dependence, unspecified, uncomplicated
CPT/HCPCS: 96372; 99282; 99283; A9270; 87491; 87591